=== PATIENT | female | born 1930 | race Caucasian/White ===

== ENCOUNTER 2017-04-28 00:09 | Inpatient (IN) ==
[2017-04-28] MEDS ORDERED: ONDANSETRON 4 MG/2 ML VIAL IV STA (00:34)
[2017-04-28] MEDS ORDERED: ONDANSETRON 4 MG/2 ML VIAL ONE ×3 (00:45→11:26)
[2017-04-28 01:01] LABS: Basophils # 0.1 10*3/uL (0.0-0.2); Basophils % 0.3 % (0.0-0.8); Eosinophils # 0.2 10*3/uL (0.0-0.87); Eosinophils % 1.1 % (0.00-10.9); Hematocrit 39.1 VOL% (35.7-47.0); Immature Granulocytes % 1.5 %; Immature Granulocytes Absolute 0.26 #; Lymphocytes # 1.3 10*3/uL (1.4-4.0); Lymphocytes % 7.4 % (21.3-54.2); Mean Corpuscular HGB Conc 30.7 GM/DL (32-36); Mean Corpuscular Hemoglobin 25 PG (27-34); Mean Corpuscular Volume 82.1 FL (87-102); Mean Platelet Volume 10.8 FL (9.6-12.0); Monocytes # 0.6 10*3/uL (0.11-0.8); Monocytes % 3.7 % (1.7-12.7); Neutrophils # 14.8 10*3/uL (1.4-7.4); Platelet Count 252 T/CUMM (130-400); Red Blood Count 4.76 MC/CUMM (3.8-5.5); White Blood Count 17.2 T/CUMM (4-12)
[2017-04-28 01:03] LABS: INR 0.9; PT Patient Result 9.8 SECS; Partial Thromboplastin Time 22.6 SECS (0-40)
[2017-04-28 01:17] LABS: Albumin 3.7 G/DL (3.4-5.0); Bilirubin,Total 0.4 MG/DL (0.2-1.0); Calcium 8.6 MG/DL (8.5-10.1); Osmolality,Calculated 286.5 MOS/KG (273-304); Potassium 4.2 MMOL/L (3.5-5.1); Total Protein 7.3 G/DL (6.4-8.3)
[2017-04-28] MEDS ORDERED: ONDANSETRON 4 MG/2 ML VIAL IV PRN ×2 (01:55→11:24)
[2017-04-28 02:22] LABS: Apearance,Urine CLEAR (Clear); Bacteria,Urine Few /HPF (Few); Bilirubin,Urine Negative (Negative); Blood, Urine Negative (Negative); Glucose,Urine (UA) Negative (Negative); Ketones,Urine Negative (Negative); Mucus,Urine Occasional /LPF (Occasional); Nitrite,Urine Negative (Negative); Protein,Urine Negative; RBC,Urine 2 /HPF (0-4); Squamous Epithelial Cell,Urine Occasional /HPF (0-10); Urine Color Yellow (Yellow); Urine Specific Gravity 1.016 (1.001-1.035); WBC,Urine 1 /HPF (0-6)
[2017-04-28] MEDS ORDERED: GLUCAGON 1 MG VIAL IM PRN (02:52)
[2017-04-28] MEDS ORDERED: DEXTROSE 50% 25 GM/50 ML VIAL IV PRN (02:52)
[2017-04-28] MEDS: HYDROmorphone 2 MG/1 ML VIAL IV PRN ×2 (03:25→20:54)
[2017-04-28 07:18] LABS: Basophils # 0.1 10*3/uL (0.0-0.2); Basophils % 0.4 % (0.0-0.8); Eosinophils # 0.2 10*3/uL (0.0-0.87); Eosinophils % 1.1 % (0.00-10.9); Hematocrit 37.2 VOL% (35.7-47.0); Hemoglobin 11.1 GM/DL (12.0-16.0); Immature Granulocytes % 0.6 %; Immature Granulocytes Absolute 0.08 #; Lymphocytes # 1.3 10*3/uL (1.4-4.0); Lymphocytes % 9.7 % (21.3-54.2); Mean Corpuscular HGB Conc 29.8 GM/DL (32-36); Mean Corpuscular Hemoglobin 25 PG (27-34); Mean Corpuscular Volume 84.9 FL (87-102); Mean Platelet Volume 10.3 FL (9.6-12.0); Monocytes # 0.7 10*3/uL (0.11-0.8); Monocytes % 5.1 % (1.7-12.7); Neutrophils # 11.5 10*3/uL (1.4-7.4); Neutrophils % 83.1 % (38.7-73.9); Platelet Count 235 T/CUMM (130-400); Red Blood Count 4.38 MC/CUMM (3.8-5.5); Red Cell Distribution Width 18.6 % (9.3-17.3); White Blood Count 13.8 T/CUMM (4-12)
[2017-04-28 07:38] LABS: Alanine Aminotransferase 16 U/L (13-56); Albumin 3.2 G/DL (3.4-5.0); Alkaline Phosphatase 83 U/L (45-117); Aspartate Amino Transferase 16 U/L (0-37); Bilirubin,Total < 0.39 MG/DL (0.2-1.0); Blood Urea Nitrogen 36 MG/DL (7-18); Calcium 8.5 MG/DL (8.5-10.1); Glucose 174 MG/DL (74-106); Osmolality,Calculated 286.7 MOS/KG (273-304); Potassium 4.7 MMOL/L (3.5-5.1); Sodium 138 MMOL/L (136-145); Total Protein 6.8 G/DL (6.4-8.3)
[2017-04-28] MEDS ORDERED: CLINDAMYCIN INJ 900 MG in PREMIX 1 EACH IV ONE (07:40)
[2017-04-28] MEDS: INSULIN REGULAR 100 UNIT/ML SUBCUT SCH ×4 (07:42→20:56)
[2017-04-28 07:45] LABS: Hypochromasia 1+; Microcytosis 1+; Platelet Estimate Normal
[2017-04-28] MEDS ORDERED: CLINDAMYCIN INJ 50 ML IV ONE (09:19)
[2017-04-28] MEDS ORDERED: PROMETHAZINE 25 MG/1 ML VIAL IM PRN (10:50)
[2017-04-28] MEDS ORDERED: BISACODYL 10 MG SUPP RECTAL PRN (10:50)
[2017-04-28] MEDS ORDERED: LACTULOSE 20 GM/30 ML UDCUP PO PRN (10:50)
[2017-04-28] MEDS: PANTOPRAZOLE 40 MG VIAL IV SCH (10:53)
[2017-04-28] MEDS ORDERED: PROPOFOL 200 MG/20 ML VIAL IV ONE (11:13)
[2017-04-28] MEDS ORDERED: SEVOFLURANE 1 UNIT/15 MINUTE INH ONE (11:13)
[2017-04-28] MEDS ORDERED: PHENYLEPHRINE 10 MG/1 ML VIAL IV ONE (11:14)
[2017-04-28] MEDS ORDERED: NEOSTIGMINE 10 MG/10 ML VIAL ONE (11:14)
[2017-04-28] MEDS ORDERED: ROCURONIUM 100 MG/10 ML VIAL IV ONE (11:14)
[2017-04-28] MEDS ORDERED: GLYCOPYRROLATE 0.4 MG/2 ML VIAL ONE (11:14)
[2017-04-28] MEDS ORDERED: fentaNYL 100 MCG/2 ML VIAL ONE (11:14)
[2017-04-28] MEDS ORDERED: HYDROmorphone 2 MG/1 ML VIAL IV PRN (11:24)
[2017-04-28] MEDS: LACTATED RINGERS 1,000 ML IV SCH (12:08)
[2017-04-28] MEDS: AMITRIPTYLINE 25 MG TABLET PO SCH ×2 (17:50→20:49)
[2017-04-28] MEDS: GABAPENTIN 400 MG CAPSULE PO SCH ×2 (17:50→20:49)
[2017-04-28] MEDS: PERPHENAZINE 2 MG TABLET PO SCH ×2 (17:50→20:48)
[2017-04-28] MEDS: PERPHENAZINE 4 MG TABLET PO SCH ×2 (17:50→20:49)
[2017-04-28] MEDS: GLIMEPIRIDE 4 MG TABLET PO SCH (18:39)
[2017-04-28] MEDS: CLINDAMYCIN INJ 900 MG in PREMIX 1 EACH IV SCH (18:40)
[2017-04-28] MEDS: DONEPEZIL 5 MG TABLET PO SCH (20:48)
[2017-04-28] MEDS: QUEtiapine XR 50 MG TABLET PO SCH (20:49)
[2017-04-28] MEDS: rOPINIRole 4 MG TABLET PO SCH (20:49)
[2017-04-28] MEDS: PANTOPRAZOLE 40 MG TABLET PO SCH (20:53)
[2017-04-28] MEDS: TEMAZEPAM 15 MG CAPSULE PO SCH (20:53)
[2017-04-29] MEDS: CLINDAMYCIN INJ 900 MG in PREMIX 1 EACH IV SCH (00:31)
[2017-04-29] MEDS: FONDAPARINUX 2.5 MG/0.5 ML SYRINGE SUBCUT SCH (05:19)
[2017-04-29 05:55] LABS: Basophils % 0.4 % (0.0-0.8); Eosinophils # 0.5 10*3/uL (0.0-0.87); Eosinophils % 4.8 % (0.00-10.9); Hematocrit 31.8 VOL% (35.7-47.0); Hemoglobin 9.7 GM/DL (12.0-16.0); Immature Granulocytes % 0.7 %; Immature Granulocytes Absolute 0.07 #; Lymphocytes # 1.2 10*3/uL (1.4-4.0); Lymphocytes % 11.5 % (21.3-54.2); Mean Corpuscular HGB Conc 30.5 GM/DL (32-36); Mean Corpuscular Hemoglobin 25 PG (27-34); Mean Corpuscular Volume 82.8 FL (87-102); Mean Platelet Volume 10.8 FL (9.6-12.0); Monocytes # 0.6 10*3/uL (0.11-0.8); Monocytes % 5.4 % (1.7-12.7); Neutrophils # 8.2 10*3/uL (1.4-7.4); Neutrophils % 77.2 % (38.7-73.9); Platelet Count 193 T/CUMM (130-400); Red Blood Count 3.84 MC/CUMM (3.8-5.5); Red Cell Distribution Width 18.5 % (9.3-17.3); White Blood Count 10.6 T/CUMM (4-12)
[2017-04-29] MEDS: INSULIN REGULAR 100 UNIT/ML SUBCUT SCH ×4 (09:38→20:45)
[2017-04-29] MEDS: PANTOPRAZOLE 40 MG VIAL IV SCH (09:38)
[2017-04-29] MEDS: PANTOPRAZOLE 40 MG TABLET PO SCH ×2 (09:47→20:39)
[2017-04-29] MEDS: QUEtiapine XR 50 MG TABLET PO SCH ×2 (09:47→20:39)
[2017-04-29] MEDS: AMITRIPTYLINE 25 MG TABLET PO SCH ×3 (09:48→20:39)
[2017-04-29] MEDS: PERPHENAZINE 4 MG TABLET PO SCH ×3 (09:50→20:39)
[2017-04-29] MEDS: PERPHENAZINE 2 MG TABLET PO SCH ×3 (09:50→20:39)
[2017-04-29] MEDS: GABAPENTIN 400 MG CAPSULE PO SCH ×3 (09:52→20:39)
[2017-04-29] MEDS: GLIMEPIRIDE 4 MG TABLET PO SCH ×2 (09:52→18:32)
[2017-04-29] MEDS: LACTATED RINGERS 1,000 ML IV SCH (13:37)
[2017-04-29] MEDS: rOPINIRole 4 MG TABLET PO SCH (20:39)
[2017-04-29] MEDS: DONEPEZIL 5 MG TABLET PO SCH (20:39)
[2017-04-29] MEDS: TEMAZEPAM 15 MG CAPSULE PO SCH (20:39)
[2017-04-30] MEDS: FONDAPARINUX 2.5 MG/0.5 ML SYRINGE SUBCUT SCH (05:51)
[2017-04-30] MEDS: LACTATED RINGERS 1,000 ML IV SCH ×2 (07:18→11:45)
[2017-04-30] MEDS: INSULIN REGULAR 100 UNIT/ML SUBCUT SCH ×4 (09:05→22:21)
[2017-04-30] MEDS: GLIMEPIRIDE 4 MG TABLET PO SCH ×2 (09:05→20:26)
[2017-04-30] MEDS: PANTOPRAZOLE 40 MG VIAL IV SCH (09:06)
[2017-04-30] MEDS: PERPHENAZINE 4 MG TABLET PO SCH ×3 (14:41→22:22)
[2017-04-30] MEDS: PERPHENAZINE 2 MG TABLET PO SCH ×3 (14:43→22:22)
[2017-04-30] MEDS: PANTOPRAZOLE 40 MG TABLET PO SCH ×2 (14:45→22:21)
[2017-04-30] MEDS: AMITRIPTYLINE 25 MG TABLET PO SCH ×3 (14:45→22:22)
[2017-04-30] MEDS: GABAPENTIN 400 MG CAPSULE PO SCH ×3 (14:46→22:22)
[2017-04-30] MEDS: MAGNESIUM HYDROXIDE SUSP 30 ML UDCUP PO PRN (14:48)
[2017-04-30] MEDS: QUEtiapine XR 50 MG TABLET PO SCH ×2 (14:53→22:22)
[2017-04-30] MEDS: TEMAZEPAM 15 MG CAPSULE PO SCH (22:21)
[2017-04-30] MEDS: rOPINIRole 4 MG TABLET PO SCH (22:22)
[2017-04-30] MEDS: DONEPEZIL 5 MG TABLET PO SCH (22:22)
[2017-05-01] MEDS: FONDAPARINUX 2.5 MG/0.5 ML SYRINGE SUBCUT SCH (06:06)
[2017-05-01] MEDS: LACTATED RINGERS 1,000 ML IV SCH (06:34)
[2017-05-01] MEDS: INSULIN REGULAR 100 UNIT/ML SUBCUT SCH ×4 (08:37→22:08)
[2017-05-01] MEDS: GLIMEPIRIDE 4 MG TABLET PO SCH ×2 (08:38→17:48)
[2017-05-01] MEDS: MAGNESIUM HYDROXIDE SUSP 30 ML UDCUP PO PRN (13:29)
[2017-05-01] MEDS: PANTOPRAZOLE 40 MG TABLET PO SCH ×2 (13:32→22:05)
[2017-05-01] MEDS: PANTOPRAZOLE 40 MG VIAL IV SCH (13:44)
[2017-05-01] MEDS: AMITRIPTYLINE 25 MG TABLET PO SCH ×3 (13:44→22:05)
[2017-05-01] MEDS: GABAPENTIN 400 MG CAPSULE PO SCH ×3 (13:44→22:05)
[2017-05-01] MEDS: PERPHENAZINE 4 MG TABLET PO SCH ×3 (13:45→22:05)
[2017-05-01] MEDS: QUEtiapine XR 50 MG TABLET PO SCH ×2 (13:45→22:16)
[2017-05-01] MEDS: PERPHENAZINE 2 MG TABLET PO SCH ×3 (13:46→22:05)
[2017-05-01] MEDS: rOPINIRole 4 MG TABLET PO SCH (22:05)
[2017-05-01] MEDS: DONEPEZIL 5 MG TABLET PO SCH (22:05)
[2017-05-02] MEDS: LACTATED RINGERS 1,000 ML IV SCH (06:30)
[2017-05-02] MEDS: FONDAPARINUX 2.5 MG/0.5 ML SYRINGE SUBCUT SCH (06:30)
[2017-05-02] MEDS: GLIMEPIRIDE 4 MG TABLET PO SCH (09:00)
[2017-05-02] MEDS: GABAPENTIN 400 MG CAPSULE PO SCH (09:00)
[2017-05-02] MEDS: PERPHENAZINE 4 MG TABLET PO SCH (09:00)
[2017-05-02] MEDS: AMITRIPTYLINE 25 MG TABLET PO SCH (09:00)
[2017-05-02] MEDS: QUEtiapine XR 50 MG TABLET PO SCH (09:00)
[2017-05-02] MEDS: PERPHENAZINE 2 MG TABLET PO SCH (09:00)
[2017-05-02] MEDS: PANTOPRAZOLE 40 MG TABLET PO SCH (09:00)
[2017-05-02] MEDS: INSULIN REGULAR 100 UNIT/ML SUBCUT SCH ×2 (09:02→11:45)
[2017-05-02] MEDS: PANTOPRAZOLE 40 MG VIAL IV SCH (09:02)
[2017-05-02 11:16] VITALS: BP 140/67
== END 2017-05-02 13:45 | disposition swing bed (61) | DRG 481 ==
LOC: EDBD → EDUNIT# → N.ED 00:09 → N.EDINP 01:55 → SUATTDRO 01:55 → N.3E 02:29
PROVIDERS: ADMIT Internal Medicine Geriatric Medicine; ATTEND Internal Medicine

== ENCOUNTER 2017-05-11 12:56 | Inpatient (IN) ==
[2017-05-11] MEDS ORDERED: SODIUM CHLORIDE 0.9% 1,000 ML IV STA ×2 (13:33→14:51)
[2017-05-11] MEDS ORDERED: LEVOFLOXACIN INJ 500 MG in PREMIX 1 EACH IV STA (13:34)
[2017-05-11 14:25] LABS: Basophils # 0.1 10*3/uL (0.0-0.2); Basophils % 0.2 % (0.0-0.8); Eosinophils # 0.1 10*3/uL (0.0-0.87); Eosinophils % 0.4 % (0.00-10.9); Hematocrit 38.6 VOL% (35.7-47.0); Hemoglobin 11.6 GM/DL (12.0-16.0); Immature Granulocytes % 2.4 %; Immature Granulocytes Absolute 0.52 #; Lymphocytes # 0.4 10*3/uL (1.4-4.0); Lymphocytes % 1.8 % (21.3-54.2); Mean Corpuscular HGB Conc 30.1 GM/DL (32-36); Mean Corpuscular Hemoglobin 25 PG (27-34); Mean Corpuscular Volume 84.1 FL (87-102); Mean Platelet Volume 10.4 FL (9.6-12.0); Monocytes # 0.4 10*3/uL (0.11-0.8); Neutrophils # 20.1 10*3/uL (1.4-7.4); Neutrophils % 93.2 % (38.7-73.9); Platelet Count 586 T/CUMM (130-400); Red Blood Count 4.59 MC/CUMM (3.8-5.5); Red Cell Distribution Width 16.6 % (9.3-17.3); White Blood Count 21.5 T/CUMM (4-12)
[2017-05-11 14:39] LABS: Partial Thromboplastin Time 28.5 SECS (0-40)
[2017-05-11] MEDS ORDERED: LEVOFLOXACIN INJ 100 ML IV ONE (14:42)
[2017-05-11 14:43] LABS: Apearance,Urine CLEAR (Clear); Bilirubin,Urine Negative (Negative); Blood, Urine Negative (Negative); Glucose,Urine (UA) Negative (Negative); Hyaline Casts,Urine 15 /LPF (0-3); Ketones,Urine Negative (Negative); Mucus,Urine Occasional /LPF (Occasional); Nitrite,Urine Negative (Negative); Protein,Urine Negative; RBC,Urine 1 /HPF (0-4); Squamous Epithelial Cell,Urine Occasional /HPF (0-10); Urine Color Yellow (Yellow); Urine Specific Gravity 1.013 (1.001-1.035); Urine Urobilinogen < 2.0 EU/DL (0.2-1.0); WBC,Urine 3 /HPF (0-6)
[2017-05-11 14:48] LABS: Alanine Aminotransferase 16 U/L (13-56); Albumin 2.7 G/DL (3.4-5.0); Alkaline Phosphatase 125 U/L (45-117); Aspartate Amino Transferase 27 U/L (0-37); Bilirubin,Total < 0.39 MG/DL (0.2-1.0); Blood Urea Nitrogen 22 MG/DL (7-18); Calcium 8.9 MG/DL (8.5-10.1); Glucose 188 MG/DL (74-106); Osmolality,Calculated 273.4 MOS/KG (273-304); Potassium 4.7 MMOL/L (3.5-5.1); Sodium 133 MMOL/L (136-145); Total Protein 6.5 G/DL (6.4-8.3)
[2017-05-11 14:55] LABS: Lactic Acid 4.2 MMOL/L (0.4-2.0)
[2017-05-11 15:04] LABS: Barbiturates Screen,Urine Negative (Negative); Benzodiazepines Screen,Urine Negative (Negative); Cannabinoid Screen,Urine Negative (Negative); Opiate Screen,Urine Positive (Negative); Phencyclidine Screen,Urine Negative (Negative)
[2017-05-11] MEDS ORDERED: SODIUM CHLORIDE 0.9% 300 ML IV ONE (15:10)
[2017-05-11] MEDS ORDERED: GENTAMICIN INJ 300 MG in SODIUM CHLORIDE 0.9% 100 ML IV SCH (15:30)
[2017-05-11] MEDS ORDERED: ONDANSETRON 4 MG/2 ML VIAL IV PRN (15:41)
[2017-05-11] MEDS ORDERED: AZTREONAM 1,000 MG VIAL ONE (15:46)
[2017-05-11 16:07] LABS: ABG Base Excess 1.9 MMOL/L (-2.5-2.5); ABG HCO3 24.8 MMOL/L (20-26); ABG Oxygen Saturation 93.5 % (95-100); ABG PCO2 32.8 MM HG (35-48); ABG PH 7.496 (7.35-7.45); ABG PO2 68.6 MM HG (80-95); ABG TCO2 25.8 MMOL/L (23-27); Allen Test Positive; Pt O2 Delivery Device Room Air
[2017-05-11] MEDS: AZTREONAM 2,000 MG in SYRINGE 1 EACH IV SCH ×2 (16:19→20:47)
[2017-05-11 16:25] LABS: Troponin I Only 0.015 NG/ML (0.00-0.045)
[2017-05-11] MEDS ORDERED: DEXTROSE 50% 25 GM/50 ML VIAL IV PRN (16:26)
[2017-05-11] MEDS ORDERED: GLUCAGON 1 MG VIAL IM PRN (16:26)
[2017-05-11 16:41] LABS: Lymphocytes 2 % (20-55); Platelet Estimate Increased; Segmented Neutrophils 95 % (50-85); Total Cells Counted 100
[2017-05-11] MEDS: SODIUM CHLORIDE 0.9% 1,000 ML IV SCH (18:00)
[2017-05-11] MEDS: INSULIN LISPRO 100 UNIT/ML SUBCUT SCH (18:10)
[2017-05-11] MEDS: PANTOPRAZOLE 40 MG VIAL IV SCH (18:13)
[2017-05-11] MEDS: VANCOMYCIN INJ 1,250 MG in SODIUM CHLORIDE 0.9% 250 ML IV SCH (18:14)
[2017-05-11] MEDS: GENTAMICIN INJ 120 MG in PREMIX 1 EACH IV SCH (20:13)
[2017-05-11 20:14] LABS: Lactic Acid 4.1 MMOL/L (0.4-2.0); Troponin I Only < 0.015 NG/ML (0.00-0.045)
[2017-05-11] MEDS: ENOXAPARIN 40 MG/0.4 ML SYRINGE SUBCUT SCH (20:47)
[2017-05-12 01:42] LABS: Troponin I Only < 0.015 NG/ML (0.00-0.045)
[2017-05-12] MEDS: SODIUM CHLORIDE 0.9% 1,000 ML IV SCH ×4 (02:32→23:38)
[2017-05-12] MEDS: AZTREONAM 2,000 MG in SYRINGE 1 EACH IV SCH ×4 (03:51→20:31)
[2017-05-12 06:00] LABS: Basophils % 0.2 % (0.0-0.8); Eosinophils # 0.7 10*3/uL (0.0-0.87); Eosinophils % 4.4 % (0.00-10.9); Hematocrit 29.3 VOL% (35.7-47.0); Immature Granulocytes % 1.8 %; Immature Granulocytes Absolute 0.29 #; Lymphocytes # 0.5 10*3/uL (1.4-4.0); Mean Corpuscular HGB Conc 31.1 GM/DL (32-36); Mean Corpuscular Hemoglobin 26 PG (27-34); Mean Corpuscular Volume 82.1 FL (87-102); Mean Platelet Volume 10.6 FL (9.6-12.0); Monocytes # 0.5 10*3/uL (0.11-0.8); Monocytes % 3.4 % (1.7-12.7); Neutrophils % 87.2 % (38.7-73.9); Red Cell Distribution Width 16.8 % (9.3-17.3); White Blood Count 16.1 T/CUMM (4-12)
[2017-05-12 06:02] LABS: Hemoglobin 9.1 GM/DL (12.0-16.0); Platelet Count 427 T/CUMM (130-400); Red Blood Count 3.57 MC/CUMM (3.8-5.5)
[2017-05-12 06:12] LABS: Calcium 7.8 MG/DL (8.5-10.1); Osmolality,Calculated 272.1 MOS/KG (273-304); Potassium 4.4 MMOL/L (3.5-5.1)
[2017-05-12 06:23] LABS: Band Neutrophils 2 % (0-10); Eosinophils 4 % (0-10); Giant Platelets Few; Hypochromasia 1+; Lymphocytes 4 % (20-55); Ovalocytes Slight; Platelet Estimate Adequate; Segmented Neutrophils 87 % (50-85); Total Cells Counted 100
[2017-05-12] MEDS: INSULIN LISPRO 100 UNIT/ML SUBCUT SCH ×2 (08:51→17:04)
[2017-05-12] MEDS: PANTOPRAZOLE 40 MG VIAL IV SCH (08:53)
[2017-05-12] MEDS: GENTAMICIN INJ 120 MG in PREMIX 1 EACH IV SCH (14:02)
[2017-05-12] MEDS: VANCOMYCIN INJ 1,250 MG in SODIUM CHLORIDE 0.9% 250 ML IV SCH (17:26)
[2017-05-12] MEDS: ENOXAPARIN 40 MG/0.4 ML SYRINGE SUBCUT SCH (20:20)
[2017-05-13] MEDS ORDERED: diphenhydrAMINE CAP 25 MG CAPSULE PO ONE (01:58)
[2017-05-13] MEDS: AZTREONAM 2,000 MG in SYRINGE 1 EACH IV SCH ×4 (04:03→22:11)
[2017-05-13 05:23] LABS: Basophils % 0.4 % (0.0-0.8); Eosinophils # 1.3 10*3/uL (0.0-0.87); Eosinophils % 11.2 % (0.00-10.9); Hematocrit 31.1 VOL% (35.7-47.0); Hemoglobin 9.5 GM/DL (12.0-16.0); Immature Granulocytes % 1.1 %; Immature Granulocytes Absolute 0.12 #; Lymphocytes # 0.9 10*3/uL (1.4-4.0); Mean Corpuscular HGB Conc 30.5 GM/DL (32-36); Mean Corpuscular Hemoglobin 25 PG (27-34); Mean Corpuscular Volume 83.2 FL (87-102); Mean Platelet Volume 10.3 FL (9.6-12.0); Monocytes # 0.4 10*3/uL (0.11-0.8); Monocytes % 3.8 % (1.7-12.7); Neutrophils # 8.5 10*3/uL (1.4-7.4); Neutrophils % 75.5 % (38.7-73.9); Platelet Count 423 T/CUMM (130-400); Red Blood Count 3.74 MC/CUMM (3.8-5.5); Red Cell Distribution Width 16.7 % (9.3-17.3); White Blood Count 11.3 T/CUMM (4-12)
[2017-05-13 05:54] LABS: Burr Cells Slight; Eosinophils 14 % (0-10); Giant Platelets Few; Hypochromasia 1+; Lymphocytes 5 % (20-55); Platelet Estimate Adequate; Segmented Neutrophils 78 % (50-85); Total Cells Counted 100
[2017-05-13 06:28] LABS: Calcium 8.1 MG/DL (8.5-10.1); Osmolality,Calculated 276.7 MOS/KG (273-304); Potassium 4.4 MMOL/L (3.5-5.1)
[2017-05-13] MEDS: GABAPENTIN 400 MG CAPSULE PO SCH ×3 (08:21→22:05)
[2017-05-13] MEDS: QUEtiapine XR 50 MG TABLET PO SCH ×2 (08:22→22:05)
[2017-05-13] MEDS: PANTOPRAZOLE 40 MG VIAL IV SCH (08:23)
[2017-05-13] MEDS: INSULIN LISPRO 100 UNIT/ML SUBCUT SCH ×2 (08:32→18:01)
[2017-05-13] MEDS ORDERED: PERPHENAZINE PO SCH (09:00)
[2017-05-13] MEDS ORDERED: AMITRIPTYLINE 25 MG TABLET PO SCH (09:00)
[2017-05-13] MEDS ORDERED: AMITRIPTYLINE PO SCH (09:00)
[2017-05-13] MEDS: GENTAMICIN INJ 120 MG in PREMIX 1 EACH IV SCH (10:00)
[2017-05-13] MEDS: AMITRIPTYLINE 25 MG TABLET PO SCH ×3 (10:18→22:04)
[2017-05-13] MEDS: PERPHENAZINE 2 MG TABLET PO SCH ×3 (10:25→22:04)
[2017-05-13] MEDS: SODIUM CHLORIDE 0.9% 1,000 ML IV SCH (11:39)
[2017-05-13] MEDS: ZINC OXIDE PASTE 113 GM TUBE TOP SCH ×2 (12:30→22:06)
[2017-05-13] MEDS: rOPINIRole 4 MG TABLET PO SCH (22:03)
[2017-05-13] MEDS: traZODone 50 MG TABLET PO SCH (22:03)
[2017-05-13] MEDS: DONEPEZIL 5 MG TABLET PO SCH (22:04)
[2017-05-13] MEDS: ENOXAPARIN 40 MG/0.4 ML SYRINGE SUBCUT SCH (22:06)
[2017-05-13] MEDS: VANCOMYCIN INJ 1,250 MG in SODIUM CHLORIDE 0.9% 250 ML IV SCH (22:48)
[2017-05-14] MEDS: AZTREONAM 2,000 MG in SYRINGE 1 EACH IV SCH ×4 (02:40→21:21)
[2017-05-14] MEDS: INSULIN LISPRO 100 UNIT/ML SUBCUT SCH ×2 (07:32→16:57)
[2017-05-14] MEDS: PANTOPRAZOLE 40 MG TABLET PO SCH (10:48)
[2017-05-14] MEDS: GABAPENTIN 400 MG CAPSULE PO SCH ×3 (10:48→21:17)
[2017-05-14] MEDS: QUEtiapine XR 50 MG TABLET PO SCH ×2 (10:48→21:17)
[2017-05-14] MEDS: AMITRIPTYLINE 25 MG TABLET PO SCH ×3 (10:48→21:17)
[2017-05-14] MEDS: PERPHENAZINE 2 MG TABLET PO SCH ×3 (10:49→21:17)
[2017-05-14] MEDS: ZINC OXIDE PASTE 113 GM TUBE TOP SCH ×2 (14:50→21:28)
[2017-05-14] MEDS: DONEPEZIL 5 MG TABLET PO SCH (21:17)
[2017-05-14] MEDS: traZODone 50 MG TABLET PO SCH (21:17)
[2017-05-14] MEDS: ENOXAPARIN 40 MG/0.4 ML SYRINGE SUBCUT SCH (21:17)
[2017-05-14] MEDS: rOPINIRole 4 MG TABLET PO SCH (21:17)
[2017-05-14] MEDS: VANCOMYCIN INJ 1,250 MG in SODIUM CHLORIDE 0.9% 250 ML IV SCH (21:28)
[2017-05-15] MEDS: AZTREONAM 2,000 MG in SYRINGE 1 EACH IV SCH (04:08)
[2017-05-15] MEDS: INSULIN LISPRO 100 UNIT/ML SUBCUT SCH ×2 (07:43→16:34)
[2017-05-15] MEDS: AMITRIPTYLINE 25 MG TABLET PO SCH ×3 (08:43→20:32)
[2017-05-15] MEDS: PANTOPRAZOLE 40 MG TABLET PO SCH (08:44)
[2017-05-15] MEDS: GABAPENTIN 400 MG CAPSULE PO SCH ×3 (08:44→20:33)
[2017-05-15] MEDS: QUEtiapine XR 50 MG TABLET PO SCH ×2 (08:44→20:33)
[2017-05-15] MEDS: PERPHENAZINE 2 MG TABLET PO SCH ×3 (08:44→20:33)
[2017-05-15] MEDS: ZINC OXIDE PASTE 113 GM TUBE TOP SCH ×2 (19:25→20:33)
[2017-05-15] MEDS: traZODone 50 MG TABLET PO SCH (20:32)
[2017-05-15] MEDS: rOPINIRole 4 MG TABLET PO SCH (20:33)
[2017-05-15] MEDS: ENOXAPARIN 40 MG/0.4 ML SYRINGE SUBCUT SCH (20:33)
[2017-05-15] MEDS: DONEPEZIL 5 MG TABLET PO SCH (20:33)
[2017-05-16 06:28] LABS: Basophils # 0.1 10*3/uL (0.0-0.2); Basophils % 0.8 % (0.0-0.8); Eosinophils # 0.5 10*3/uL (0.0-0.87); Eosinophils % 6.2 % (0.00-10.9); Hematocrit 31.6 VOL% (35.7-47.0); Hemoglobin 9.9 GM/DL (12.0-16.0); Immature Granulocytes % 2.9 %; Immature Granulocytes Absolute 0.25 #; Lymphocytes # 2.1 10*3/uL (1.4-4.0); Lymphocytes % 23.5 % (21.3-54.2); Mean Corpuscular HGB Conc 31.3 GM/DL (32-36); Mean Corpuscular Hemoglobin 26 PG (27-34); Mean Corpuscular Volume 81.4 FL (87-102); Mean Platelet Volume 10.1 FL (9.6-12.0); Monocytes # 0.7 10*3/uL (0.11-0.8); Monocytes % 7.4 % (1.7-12.7); Neutrophils # 5.2 10*3/uL (1.4-7.4); Neutrophils % 59.2 % (38.7-73.9); Platelet Count 442 T/CUMM (130-400); Red Blood Count 3.88 MC/CUMM (3.8-5.5); Red Cell Distribution Width 16.6 % (9.3-17.3); White Blood Count 8.7 T/CUMM (4-12)
[2017-05-16 06:57] LABS: Calcium 8.6 MG/DL (8.5-10.1); Osmolality,Calculated 280.4 MOS/KG (273-304); Potassium 3.9 MMOL/L (3.5-5.1)
[2017-05-16] MEDS: INSULIN LISPRO 100 UNIT/ML SUBCUT SCH ×2 (08:41→17:33)
[2017-05-16] MEDS: PANTOPRAZOLE 40 MG TABLET PO SCH (09:22)
[2017-05-16] MEDS: GABAPENTIN 400 MG CAPSULE PO SCH ×3 (09:22→20:25)
[2017-05-16] MEDS: QUEtiapine XR 50 MG TABLET PO SCH ×2 (09:22→20:25)
[2017-05-16] MEDS: AMITRIPTYLINE 25 MG TABLET PO SCH ×3 (09:22→20:25)
[2017-05-16] MEDS: PERPHENAZINE 2 MG TABLET PO SCH ×3 (09:22→20:25)
[2017-05-16] MEDS: ZINC OXIDE PASTE 113 GM TUBE TOP SCH ×2 (16:19→20:25)
[2017-05-16] MEDS: DONEPEZIL 5 MG TABLET PO SCH (20:25)
[2017-05-16] MEDS: traZODone 50 MG TABLET PO SCH (20:25)
[2017-05-16] MEDS: rOPINIRole 4 MG TABLET PO SCH (20:25)
[2017-05-16] MEDS: ENOXAPARIN 40 MG/0.4 ML SYRINGE SUBCUT SCH (20:25)
[2017-05-17] MEDS: INSULIN LISPRO 100 UNIT/ML SUBCUT SCH ×2 (10:17→17:05)
[2017-05-17] MEDS: GABAPENTIN 400 MG CAPSULE PO SCH ×3 (10:21→20:16)
[2017-05-17] MEDS: PANTOPRAZOLE 40 MG TABLET PO SCH (10:21)
[2017-05-17] MEDS: QUEtiapine XR 50 MG TABLET PO SCH ×2 (10:21→20:16)
[2017-05-17] MEDS: PERPHENAZINE 2 MG TABLET PO SCH ×3 (10:21→20:16)
[2017-05-17] MEDS: AMITRIPTYLINE 25 MG TABLET PO SCH ×3 (10:22→20:16)
[2017-05-17] MEDS: ZINC OXIDE PASTE 113 GM TUBE TOP SCH ×2 (10:22→20:16)
[2017-05-17] MEDS: rOPINIRole 4 MG TABLET PO SCH (20:16)
[2017-05-17] MEDS: ENOXAPARIN 40 MG/0.4 ML SYRINGE SUBCUT SCH (20:16)
[2017-05-17] MEDS: DONEPEZIL 5 MG TABLET PO SCH (20:16)
[2017-05-17] MEDS: traZODone 50 MG TABLET PO SCH (20:16)
[2017-05-18] MEDS: AMITRIPTYLINE 25 MG TABLET PO SCH (09:16)
[2017-05-18] MEDS: GABAPENTIN 400 MG CAPSULE PO SCH (09:16)
[2017-05-18] MEDS: PANTOPRAZOLE 40 MG TABLET PO SCH (09:16)
[2017-05-18] MEDS: QUEtiapine XR 50 MG TABLET PO SCH (09:16)
[2017-05-18] MEDS: INSULIN LISPRO 100 UNIT/ML SUBCUT SCH (09:17)
[2017-05-18] MEDS: PERPHENAZINE 2 MG TABLET PO SCH (09:17)
[2017-05-18 11:11] VITALS: BP 114/64
[2017-05-18] MEDS: ZINC OXIDE PASTE 113 GM TUBE TOP SCH (12:58)
== END 2017-05-18 14:40 | disposition swing bed (61) | DRG 871 ==
LOC: EDUNIT# → EDBD → N.ED 12:56 → N.EDINP 15:41 → SUATTDRO 15:41 → SUPCPDRO 15:41 → N.ICU 16:39 → N.3E 05-13 13:40
PROVIDERS: ADMIT Internal Medicine; ATTEND Internal Medicine

== ENCOUNTER 2017-05-22 09:59 | Inpatient (IN) ==
[2017-05-22] MEDS ORDERED: SODIUM CHLORIDE 0.9% 500 ML IV STA (10:30)
[2017-05-22] MEDS ORDERED: IBUPROFEN 400 MG TABLET PO STA (10:30)
[2017-05-22 10:35] LABS: Basophils # 0.1 10*3/uL (0.0-0.2); Basophils % 0.2 % (0.0-0.8); Hematocrit 35.1 VOL% (35.7-47.0); Hemoglobin 10.9 GM/DL (12.0-16.0); Immature Granulocytes % 0.9 %; Lymphocytes # 0.2 10*3/uL (1.4-4.0); Lymphocytes % 0.9 % (21.3-54.2); Mean Corpuscular HGB Conc 31.1 GM/DL (32-36); Mean Corpuscular Hemoglobin 26 PG (27-34); Mean Corpuscular Volume 82.6 FL (87-102); Mean Platelet Volume 10.4 FL (9.6-12.0); Monocytes # 0.4 10*3/uL (0.11-0.8); Monocytes % 1.7 % (1.7-12.7); Neutrophils # 22.2 10*3/uL (1.4-7.4); Neutrophils % 96.3 % (38.7-73.9); Platelet Count 346 T/CUMM (130-400); Red Blood Count 4.25 MC/CUMM (3.8-5.5); Red Cell Distribution Width 16.4 % (9.3-17.3); White Blood Count 23.1 T/CUMM (4-12)
[2017-05-22] MEDS ORDERED: IBUPROFEN 400 MG TABLET ONE (10:56)
[2017-05-22 11:04] LABS: Alanine Aminotransferase 32 U/L (13-56); Albumin 2.6 G/DL (3.4-5.0); Alkaline Phosphatase 136 U/L (45-117); Aspartate Amino Transferase 30 U/L (0-37); Blood Urea Nitrogen 25 MG/DL (7-18); Calcium 8.4 MG/DL (8.5-10.1); Glucose 252 MG/DL (74-106); Osmolality,Calculated 282.1 MOS/KG (273-304); Potassium 4.8 MMOL/L (3.5-5.1); Sodium 135 MMOL/L (136-145); Total Protein 5.9 G/DL (6.4-8.3)
[2017-05-22 11:15] LABS: Apearance,Urine CLEAR (Clear); Bilirubin,Urine Negative (Negative); Blood, Urine Negative (Negative); Glucose,Urine (UA) Negative (Negative); Ketones,Urine Negative (Negative); Nitrite,Urine Negative (Negative); Protein,Urine Negative; RBC,Urine <1 /HPF (0-4); Squamous Epithelial Cell,Urine Occasional /HPF (0-10); Urine Color Amber (Yellow); Urine Specific Gravity 1.015 (1.001-1.035); Urine Urobilinogen < 2.0 EU/DL (0.2-1.0); WBC,Urine 6 /HPF (0-6)
[2017-05-22] MEDS ORDERED: cefTRIAXone 1,000 MG VIAL ONE (12:15)
[2017-05-22] MEDS ORDERED: SODIUM CHLORIDE 0.9% 1,000 ML IV ONE (12:46)
[2017-05-22] MEDS ORDERED: GLUCAGON 1 MG VIAL IM PRN (12:54)
[2017-05-22] MEDS ORDERED: BISACODYL 10 MG SUPP RECTAL PRN (12:55)
[2017-05-22 13:23] LABS: Band Neutrophils 1 % (0-10); Lymphocytes 1 % (20-55); Segmented Neutrophils 97 % (50-85); Total Cells Counted 100
[2017-05-22 13:24] LABS: Platelet Estimate Adequate; Polychromasia Slight
[2017-05-22] MEDS: cefTRIAXone 1,000 MG in SODIUM CHLORIDE 0.9% 100 ML IV STA ×2 (13:36→13:53)
[2017-05-22] MEDS: FONDAPARINUX 2.5 MG/0.5 ML SYRINGE SUBCUT SCH (15:07)
[2017-05-22] MEDS: GENTAMICIN INJ 160 MG in SODIUM CHLORIDE 0.9% 100 ML IV SCH (15:07)
[2017-05-22] MEDS ORDERED: DEXTROSE 50% 25 GM/50 ML VIAL IV PRN (15:57)
[2017-05-22] MEDS: ACETAMINOPHEN 325 MG TABLET PO PRN (20:40)
[2017-05-22] MEDS: DONEPEZIL 5 MG TABLET PO SCH (22:17)
[2017-05-23] MEDS: GENTAMICIN INJ 160 MG in SODIUM CHLORIDE 0.9% 100 ML IV SCH ×2 (02:12→13:31)
[2017-05-23 06:31] LABS: Basophils # 0.1 10*3/uL (0.0-0.2); Basophils % 0.4 % (0.0-0.8); Eosinophils # 0.7 10*3/uL (0.0-0.87); Eosinophils % 4.5 % (0.00-10.9); Hematocrit 32.5 VOL% (35.7-47.0); Hemoglobin 9.8 GM/DL (12.0-16.0); Immature Granulocytes % 0.8 %; Immature Granulocytes Absolute 0.13 #; Lymphocytes # 0.8 10*3/uL (1.4-4.0); Lymphocytes % 4.9 % (21.3-54.2); Mean Corpuscular HGB Conc 30.2 GM/DL (32-36); Mean Corpuscular Hemoglobin 25 PG (27-34); Mean Corpuscular Volume 83.5 FL (87-102); Mean Platelet Volume 11.4 FL (9.6-12.0); Monocytes # 0.5 10*3/uL (0.11-0.8); Monocytes % 3.2 % (1.7-12.7); Neutrophils % 86.2 % (38.7-73.9); Platelet Count 300 T/CUMM (130-400); Red Blood Count 3.89 MC/CUMM (3.8-5.5); Red Cell Distribution Width 16.3 % (9.3-17.3); White Blood Count 16.3 T/CUMM (4-12)
[2017-05-23 07:03] LABS: Calcium 8.2 MG/DL (8.5-10.1); Eosinophils 1 % (0-10); Hypochromasia 1+; Lymphocytes 3 % (20-55); Microcytosis 1+; Osmolality,Calculated 277.8 MOS/KG (273-304); Platelet Estimate Normal; Potassium 3.8 MMOL/L (3.5-5.1); Segmented Neutrophils 95 % (50-85); Total Cells Counted 100
[2017-05-23] MEDS: LEVOFLOXACIN INJ 500 MG in PREMIX 1 EACH IV SCH (09:31)
[2017-05-23] MEDS: ACETAMINOPHEN 325 MG TABLET PO PRN (09:31)
[2017-05-23] MEDS: PANTOPRAZOLE 40 MG TABLET PO SCH (09:31)
[2017-05-23] MEDS: FONDAPARINUX 2.5 MG/0.5 ML SYRINGE SUBCUT SCH (13:31)
[2017-05-23] MEDS: AMITRIPTYLINE 25 MG TABLET PO SCH (20:38)
[2017-05-23] MEDS: DONEPEZIL 5 MG TABLET PO SCH (20:39)
[2017-05-24] MEDS: ONDANSETRON 4 MG/2 ML VIAL IV PRN ×2 (00:45→04:53)
[2017-05-24] MEDS: GENTAMICIN INJ 160 MG in SODIUM CHLORIDE 0.9% 100 ML IV SCH ×2 (02:47→16:06)
[2017-05-24 06:43] LABS: Basophils % 0.3 % (0.0-0.8); Eosinophils # 0.3 10*3/uL (0.0-0.87); Eosinophils % 2.7 % (0.00-10.9); Hematocrit 36.3 VOL% (35.7-47.0); Hemoglobin 11.2 GM/DL (12.0-16.0); Immature Granulocytes % 0.5 %; Immature Granulocytes Absolute 0.06 #; Lymphocytes # 1.3 10*3/uL (1.4-4.0); Lymphocytes % 11.1 % (21.3-54.2); Mean Corpuscular HGB Conc 30.9 GM/DL (32-36); Mean Corpuscular Hemoglobin 25 PG (27-34); Mean Corpuscular Volume 80.5 FL (87-102); Monocytes # 0.5 10*3/uL (0.11-0.8); Monocytes % 4.4 % (1.7-12.7); Neutrophils # 9.7 10*3/uL (1.4-7.4); Platelet Count 330 T/CUMM (130-400); Red Blood Count 4.51 MC/CUMM (3.8-5.5); Red Cell Distribution Width 15.9 % (9.3-17.3)
[2017-05-24 07:09] LABS: Calcium 9.2 MG/DL (8.5-10.1); Osmolality,Calculated 275.1 MOS/KG (273-304); Potassium 3.7 MMOL/L (3.5-5.1)
[2017-05-24] MEDS ORDERED: DEXTROSE 50% 25 GM/50 ML VIAL IV PRN ×2 (09:41→15:49)
[2017-05-24] MEDS ORDERED: GLUCAGON 1 MG VIAL IM PRN ×2 (09:41→15:49)
[2017-05-24] MEDS: LEVOFLOXACIN INJ 500 MG in PREMIX 1 EACH IV SCH (09:51)
[2017-05-24] MEDS: AMITRIPTYLINE 25 MG TABLET PO SCH ×3 (09:52→21:30)
[2017-05-24] MEDS: PANTOPRAZOLE 40 MG TABLET PO SCH (09:52)
[2017-05-24] MEDS ORDERED: INSULIN REGULAR 100 UNIT/ML SUBCUT SCH (11:30)
[2017-05-24] MEDS: FONDAPARINUX 2.5 MG/0.5 ML SYRINGE SUBCUT SCH (12:39)
[2017-05-24] MEDS: INSULIN LISPRO 100 UNIT/ML SUBCUT SCH ×2 (16:07→21:36)
[2017-05-24] MEDS ORDERED: TEMAZEPAM 15 MG CAPSULE PO PRN (16:07)
[2017-05-24] MEDS ORDERED: QUEtiapine 25 MG TABLET PO ONE (16:09)
[2017-05-24] MEDS: amLODIPine 5 MG TABLET PO SCH (16:20)
[2017-05-24] MEDS: DONEPEZIL 5 MG TABLET PO SCH (21:30)
[2017-05-25] MEDS: GENTAMICIN INJ 160 MG in SODIUM CHLORIDE 0.9% 100 ML IV SCH ×2 (02:19→15:48)
[2017-05-25 06:13] LABS: Basophils % 0.3 % (0.0-0.8); Eosinophils # 0.4 10*3/uL (0.0-0.87); Eosinophils % 3.3 % (0.00-10.9); Hemoglobin 11.8 GM/DL (12.0-16.0); Immature Granulocytes % 1.4 %; Immature Granulocytes Absolute 0.17 #; Lymphocytes # 1.6 10*3/uL (1.4-4.0); Lymphocytes % 13.6 % (21.3-54.2); Mean Corpuscular HGB Conc 31.9 GM/DL (32-36); Mean Corpuscular Hemoglobin 25 PG (27-34); Mean Corpuscular Volume 78.9 FL (87-102); Mean Platelet Volume 10.9 FL (9.6-12.0); Monocytes # 0.9 10*3/uL (0.11-0.8); Monocytes % 7.5 % (1.7-12.7); NRBC # 0.02 10*3/uL; Neutrophils # 8.7 10*3/uL (1.4-7.4); Neutrophils % 73.9 % (38.7-73.9); Platelet Count 352 T/CUMM (130-400); Red Blood Count 4.69 MC/CUMM (3.8-5.5); White Blood Count 11.8 T/CUMM (4-12)
[2017-05-25 06:48] LABS: Calcium 9.2 MG/DL (8.5-10.1); Osmolality,Calculated 273.1 MOS/KG (273-304); Potassium 3.7 MMOL/L (3.5-5.1)
[2017-05-25] MEDS ORDERED: MAGNESIUM SULF RIDER 2 GM in PREMIX 1 EACH IV PRN (08:32)
[2017-05-25] MEDS ORDERED: MAGNESIUM SULF RIDER 4 GM in PREMIX 1 EACH IV PRN (08:32)
[2017-05-25] MEDS: AMITRIPTYLINE 25 MG TABLET PO SCH ×3 (09:36→20:43)
[2017-05-25] MEDS: LEVOFLOXACIN INJ 500 MG in PREMIX 1 EACH IV SCH (09:36)
[2017-05-25] MEDS: amLODIPine 5 MG TABLET PO SCH (09:36)
[2017-05-25] MEDS: PANTOPRAZOLE 40 MG TABLET PO SCH (09:36)
[2017-05-25] MEDS: INSULIN LISPRO 100 UNIT/ML SUBCUT SCH ×4 (09:38→20:44)
[2017-05-25] MEDS: FONDAPARINUX 2.5 MG/0.5 ML SYRINGE SUBCUT SCH (13:52)
[2017-05-25] MEDS ORDERED: QUEtiapine 25 MG TABLET PO PRN ×2 (15:36→21:00)
[2017-05-25] MEDS: rOPINIRole 0.25 MG TABLET PO SCH (20:43)
[2017-05-25] MEDS: DONEPEZIL 5 MG TABLET PO SCH (20:43)
[2017-05-26 07:12] LABS: Basophils # 0.1 10*3/uL (0.0-0.2); Basophils % 0.6 % (0.0-0.8); Eosinophils # 0.4 10*3/uL (0.0-0.87); Eosinophils % 3.7 % (0.00-10.9); Hematocrit 38.1 VOL% (35.7-47.0); Immature Granulocytes % 0.5 %; Immature Granulocytes Absolute 0.05 #; Lymphocytes # 1.9 10*3/uL (1.4-4.0); Lymphocytes % 19.6 % (21.3-54.2); Mean Corpuscular HGB Conc 31.5 GM/DL (32-36); Mean Corpuscular Hemoglobin 25 PG (27-34); Mean Corpuscular Volume 79.2 FL (87-102); Mean Platelet Volume 11.2 FL (9.6-12.0); Monocytes % 9.9 % (1.7-12.7); Neutrophils # 6.5 10*3/uL (1.4-7.4); Neutrophils % 65.7 % (38.7-73.9); Platelet Count 375 T/CUMM (130-400); Red Blood Count 4.81 MC/CUMM (3.8-5.5); Red Cell Distribution Width 15.7 % (9.3-17.3); White Blood Count 9.9 T/CUMM (4-12)
[2017-05-26 07:40] LABS: Osmolality,Calculated 271.2 MOS/KG (273-304); Potassium 3.6 MMOL/L (3.5-5.1)
[2017-05-26] MEDS ORDERED: ATENOLOL 50 MG TABLET PO SCH (08:00)
[2017-05-26] MEDS: LEVOFLOXACIN INJ 500 MG in PREMIX 1 EACH IV SCH (09:19)
[2017-05-26] MEDS: INSULIN LISPRO 100 UNIT/ML SUBCUT SCH ×2 (09:20→12:18)
[2017-05-26] MEDS: amLODIPine 5 MG TABLET PO SCH (09:21)
[2017-05-26] MEDS: rOPINIRole 0.25 MG TABLET PO SCH (09:21)
[2017-05-26] MEDS: PANTOPRAZOLE 40 MG TABLET PO SCH (09:21)
[2017-05-26] MEDS: AMITRIPTYLINE 25 MG TABLET PO SCH ×2 (09:21→14:02)
[2017-05-26 13:53] VITALS: BP 121/68
[2017-05-26] MEDS: FONDAPARINUX 2.5 MG/0.5 ML SYRINGE SUBCUT SCH (13:56)
== END 2017-05-26 14:40 | disposition swing bed (61) | DRG 872 ==
LOC: EDUNIT# → EDBD → N.ED 09:59 → N.EDINP 12:09 → SUATTDRO 12:09 → N.EDINP 13:18 → N.5E 13:31
PROVIDERS: ATTEND Internal Medicine Infectious Disease

== ENCOUNTER 2019-03-22 11:33 | Inpatient (IN) ==
[2019-03-22 12:03] LABS: Basophils # 0.1 10*3/uL (0.0-0.2); Basophils % 0.7 % (0.0-0.8); Eosinophils # 0.8 10*3/uL (0.0-0.87); Eosinophils % 6.4 % (0.00-10.9); Hematocrit 22.5 VOL% (35.7-47.0); Immature Granulocytes % 1.3 %; Immature Granulocytes Absolute 0.16 #; Lymphocytes # 1.5 10*3/uL (1.4-4.0); Lymphocytes % 12.1 % (21.3-54.2); Mean Corpuscular Volume 75.5 FL (87-102); Monocytes % 5.5 % (1.7-12.7); NRBC # 0.02 10*3/uL; Platelet Count 313 T/CUMM (130-400); Red Blood Count 2.98 MC/CUMM (3.8-5.5); Red Cell Distribution Width 16.8 % (9.3-17.3); White Blood Count 12.2 T/CUMM (4-12)
[2019-03-22 12:05] LABS: Hemoglobin 6.3 GM/DL (12.0-16.0)
[2019-03-22 12:13] LABS: Albumin 2.8 G/DL (3.4-5.0); Bilirubin,Total 0.4 MG/DL (0.2-1.0); Calcium 8.2 MG/DL (8.5-10.1); Osmolality,Calculated 282.7 MOS/KG (273-304); Total Protein 6.5 G/DL (6.4-8.3)
[2019-03-22 12:19] LABS: % Iron Saturation 3.1 % (18-50); Ferritin 6.5 ng/ml (8-252)
[2019-03-22 12:21] LABS: Platelet Estimate Normal
[2019-03-22 12:23] LABS: Anisocytosis 1+; Polychromasia Slight
[2019-03-22] MEDS ORDERED: fentaNYL 100 MCG/2 ML VIAL IV STA (13:01)
[2019-03-22] MEDS ORDERED: ONDANSETRON 4 MG/2 ML VIAL IV STA (13:02)
[2019-03-22] MEDS ORDERED: ONDANSETRON 4 MG/2 ML VIAL ONE (13:03)
[2019-03-22] MEDS ORDERED: fentaNYL 100 MCG/2 ML VIAL ONE (13:03)
[2019-03-22] MEDS ORDERED: SODIUM CHLORIDE 0.9% 1,000 ML IV PRN (13:44)
[2019-03-22 15:22] LABS: INR 0.9; Partial Thromboplastin Time 21.8 SECS (20.8-36.0)
[2019-03-22] MEDS ORDERED: IRON DEXTRAN 25 MG in SYRINGE 1 EACH IV ONE (16:00)
[2019-03-22] MEDS: SODIUM CHLORIDE 0.9% 1,000 ML IV SCH (16:13)
[2019-03-22] MEDS: LEVOFLOXACIN INJ 750 MG in PREMIX 1 EACH IV SCH (16:16)
[2019-03-22] MEDS: rOPINIRole 0.25 MG TABLET PO SCH ×2 (16:17→21:04)
[2019-03-22] MEDS: PANTOPRAZOLE 40 MG VIAL IV SCH ×2 (16:17→21:04)
[2019-03-22 16:32] LABS: Hematocrit 22.3 VOL% (35.7-47.0)
[2019-03-22] MEDS ORDERED: IRON DEXTRAN IV ONE (17:00)
[2019-03-22] MEDS ORDERED: SODIUM CHLORIDE 0.9% IV ONE (17:00)
[2019-03-22] MEDS: oxyCODONE/ACETAMINOPHEN 5-325 MG TABLET PO PRN ×2 (17:50→21:43)
[2019-03-22 18:28] LABS: Apearance,Urine CLEAR (Clear); Bacteria,Urine Occasional /HPF (Few); Bilirubin,Urine Negative (Negative); Blood, Urine Negative (Negative); Glucose,Urine (UA) Negative (Negative); Hyaline Casts,Urine 11 /LPF (0-3); Ketones,Urine Negative (Negative); Nitrite,Urine Negative (Negative); Protein,Urine Negative; RBC,Urine 2 /HPF (0-4); Squamous Epithelial Cell,Urine Occasional /HPF (0-10); Urine Color Yellow (Yellow); Urine Specific Gravity 1.024 (1.001-1.035); Urine Urobilinogen < 2.0 EU/DL (0.2-1.0); WBC,Urine <1 /HPF (0-6)
[2019-03-22] MEDS: AMITRIPTYLINE 25 MG TABLET PO SCH (21:03)
[2019-03-22] MEDS: QUEtiapine 25 MG TABLET PO SCH (21:03)
[2019-03-22 22:27] LABS: Hematocrit 21.2 VOL% (35.7-47.0)
[2019-03-22 22:32] LABS: Hemoglobin 6.2 GM/DL (12.0-16.0)
[2019-03-23 02:32] LABS: Hematocrit 26.8 VOL% (35.7-47.0); Hemoglobin 7.9 GM/DL (12.0-16.0)
[2019-03-23] MEDS: ONDANSETRON 4 MG/2 ML VIAL IV PRN ×3 (06:12→16:39)
[2019-03-23 06:59] LABS: Hematocrit 27.2 VOL% (35.7-47.0)
[2019-03-23] MEDS ORDERED: LACTATED RINGERS 1,000 ML IV SCH (08:00)
[2019-03-23] MEDS ORDERED: LIDOCAINE 2% 5 ML VIAL ONE (09:00)
[2019-03-23] MEDS ORDERED: ETOMIDATE 20 MG/10 ML VIAL IV ONE (09:00)
[2019-03-23] MEDS: DONEPEZIL 5 MG TABLET PO SCH (11:09)
[2019-03-23] MEDS: PANTOPRAZOLE 40 MG VIAL IV SCH ×2 (11:09→20:59)
[2019-03-23] MEDS: atenoloL 50 MG TABLET PO SCH (11:10)
[2019-03-23] MEDS: ALFUZOSIN 10 MG TABLET PO SCH (11:10)
[2019-03-23] MEDS: VENLAFAXINE XR 75 MG CAPSULE PO SCH (11:10)
[2019-03-23] MEDS: rOPINIRole 0.25 MG TABLET PO SCH ×3 (11:10→20:38)
[2019-03-23] MEDS: SODIUM CHLORIDE 0.9% 1,000 ML IV SCH (11:11)
[2019-03-23] MEDS: oxyCODONE/ACETAMINOPHEN 5-325 MG TABLET PO PRN ×3 (11:21→20:38)
[2019-03-23] MEDS ORDERED: amLODIPine 5 MG TABLET PO ONE (15:00)
[2019-03-23] MEDS ORDERED: ACETAMINOPHEN 325 MG TABLET PO PRN (16:20)
[2019-03-23] MEDS: QUEtiapine 25 MG TABLET PO SCH (20:38)
[2019-03-23] MEDS: AMITRIPTYLINE 25 MG TABLET PO SCH (20:39)
[2019-03-23] MEDS ORDERED: traZODone 50 MG TABLET PO SCH (22:04)
[2019-03-23] MEDS ORDERED: PROMETHAZINE 25 MG TABLET PO PRN (22:05)
[2019-03-23] MEDS ORDERED: PROMETHAZINE 25 MG/1 ML VIAL IM ONE (22:05)
[2019-03-24] MEDS: oxyCODONE/ACETAMINOPHEN 5-325 MG TABLET PO PRN ×4 (00:41→14:53)
[2019-03-24 05:10] LABS: Basophils # 0.1 10*3/uL (0.0-0.2); Basophils % 0.6 % (0.0-0.8); Eosinophils # 0.4 10*3/uL (0.0-0.87); Eosinophils % 3.6 % (0.00-10.9); Hemoglobin 7.4 GM/DL (12.0-16.0); Immature Granulocytes % 0.8 %; Immature Granulocytes Absolute 0.09 #; Lymphocytes # 1.4 10*3/uL (1.4-4.0); Lymphocytes % 12.1 % (21.3-54.2); Mean Corpuscular HGB Conc 29.6 GM/DL (32-36); Mean Corpuscular Volume 76.9 FL (87-102); Mean Platelet Volume 11.4 FL (9.6-12.0); NRBC # 0.02 10*3/uL; Neutrophils % 74.9 % (38.7-73.9); Platelet Count 283 T/CUMM (130-400); Red Blood Count 3.25 MC/CUMM (3.8-5.5); Red Cell Distribution Width 17.7 % (9.3-17.3); White Blood Count 11.7 T/CUMM (4-12)
[2019-03-24 05:43] LABS: Calcium 8.5 MG/DL (8.5-10.1); Osmolality,Calculated 280.5 MOS/KG (273-304)
[2019-03-24] MEDS: atenoloL 50 MG TABLET PO SCH (08:57)
[2019-03-24] MEDS: VENLAFAXINE XR 75 MG CAPSULE PO SCH (08:57)
[2019-03-24] MEDS: ALFUZOSIN 10 MG TABLET PO SCH (08:58)
[2019-03-24] MEDS: DONEPEZIL 5 MG TABLET PO SCH (08:58)
[2019-03-24] MEDS: LEVOFLOXACIN INJ 750 MG in PREMIX 1 EACH IV SCH (08:58)
[2019-03-24] MEDS: rOPINIRole 0.25 MG TABLET PO SCH ×3 (08:58→20:21)
[2019-03-24] MEDS: PANTOPRAZOLE 40 MG VIAL IV SCH ×2 (08:58→21:37)
[2019-03-24] MEDS ORDERED: SODIUM CHLORIDE 0.9% 1,000 ML IV PRN ×2 (10:00→10:54)
[2019-03-24] MEDS ORDERED: FUROSEMIDE 20 MG/2 ML VIAL IV ONE ×2 (10:19→10:54)
[2019-03-24] MEDS ORDERED: ALBUTEROL 1.25 MG/3 ML NEB RESP TX PRN (10:55)
[2019-03-24] MEDS: GABAPENTIN 400 MG CAPSULE PO SCH ×3 (12:32→20:22)
[2019-03-24] MEDS: BISACODYL 5 MG TABLET PO SCH (14:53)
[2019-03-24] MEDS: ALBUTEROL 1.25 MG/3 ML NEB RESP TX SCH ×2 (15:15→17:57)
[2019-03-24] MEDS ORDERED: FUROSEMIDE 20 MG/2 ML VIAL ONE (17:32)
[2019-03-24 18:09] LABS: Hematocrit 29.7 VOL% (35.7-47.0); Hemoglobin 8.6 GM/DL (12.0-16.0)
[2019-03-24] MEDS: QUEtiapine 25 MG TABLET PO SCH (20:22)
[2019-03-24] MEDS: AMITRIPTYLINE 25 MG TABLET PO SCH (20:22)
[2019-03-24] MEDS ORDERED: traZODone 50 MG TABLET PO SCH (21:00)
[2019-03-25] MEDS: oxyCODONE/ACETAMINOPHEN 5-325 MG TABLET PO PRN ×2 (00:27→08:53)
[2019-03-25 06:11] LABS: Basophils # 0.1 10*3/uL (0.0-0.2); Basophils % 0.7 % (0.0-0.8); Eosinophils # 0.7 10*3/uL (0.0-0.87); Eosinophils % 6.2 % (0.00-10.9); Hematocrit 26.9 VOL% (35.7-47.0); Hemoglobin 8.2 GM/DL (12.0-16.0); Immature Granulocytes % 0.9 %; Lymphocytes # 1.6 10*3/uL (1.4-4.0); Lymphocytes % 14.8 % (21.3-54.2); Mean Corpuscular HGB Conc 30.5 GM/DL (32-36); Mean Corpuscular Volume 78.4 FL (87-102); Mean Platelet Volume 10.5 FL (9.6-12.0); Monocytes % 9.7 % (1.7-12.7); Neutrophils % 67.7 % (38.7-73.9); Platelet Count 268 T/CUMM (130-400); Red Blood Count 3.43 MC/CUMM (3.8-5.5); Red Cell Distribution Width 18.6 % (9.3-17.3); White Blood Count 10.7 T/CUMM (4-12)
[2019-03-25 06:30] LABS: Calcium 8.5 MG/DL (8.5-10.1); Osmolality,Calculated 275.8 MOS/KG (273-304)
[2019-03-25] MEDS: ALBUTEROL 1.25 MG/3 ML NEB RESP TX SCH (07:15)
[2019-03-25 07:44] VITALS: BP 152/65
[2019-03-25] MEDS: VENLAFAXINE XR 75 MG CAPSULE PO SCH (08:53)
[2019-03-25] MEDS: PANTOPRAZOLE 40 MG VIAL IV SCH (08:53)
[2019-03-25] MEDS: ALFUZOSIN 10 MG TABLET PO SCH (08:53)
[2019-03-25] MEDS: DONEPEZIL 5 MG TABLET PO SCH (08:54)
[2019-03-25] MEDS: GABAPENTIN 400 MG CAPSULE PO SCH (08:54)
[2019-03-25] MEDS: rOPINIRole 0.25 MG TABLET PO SCH (08:54)
[2019-03-25] MEDS: atenoloL 50 MG TABLET PO SCH (08:54)
[2019-03-25] MEDS ORDERED: LEVOFLOXACIN INJ 750 MG in PREMIX 1 EACH IV SCH (09:00)
[2019-03-25] MEDS: BISACODYL 5 MG TABLET PO SCH (10:30)
== END 2019-03-25 12:25 | disposition home or self-care (01) | DRG 811 ==
LOC: EDBD → EDUNIT# → N.EDINP 11:33 → N.ED 11:33 → N.2E 15:18
PROVIDERS: ADMIT Internal Medicine; ATTEND Internal Medicine

== ENCOUNTER 2020-06-25 12:53 | Inpatient (IN) ==
[2020-06-25 13:18] LABS: Basophils % 0.4 % (0.0-0.8); Eosinophils # 0.5 10*3/uL (0.0-0.87); Eosinophils % 4.8 % (0.00-10.9); Hematocrit 35.6 VOL% (35.7-47.0); Hemoglobin 10.9 GM/DL (12.0-16.0); Immature Granulocytes % 1.6 %; Immature Granulocytes Absolute 0.16 #; Lymphocytes # 0.8 10*3/uL (1.4-4.0); Lymphocytes % 7.8 % (21.3-54.2); Mean Corpuscular HGB Conc 30.6 GM/DL (32-36); Mean Corpuscular Volume 90.8 FL (87-102); Mean Platelet Volume 10.8 FL (9.6-12.0); Monocytes % 4.2 % (1.7-12.7); Neutrophils % 81.2 % (38.7-73.9); Platelet Count 198 T/CUMM (130-400); Red Blood Count 3.92 MC/CUMM (3.8-5.5); Red Cell Distribution Width 13.6 % (9.3-17.3); White Blood Count 10.1 T/CUMM (4-12)
[2020-06-25 13:37] LABS: Albumin 2.7 G/DL (3.4-5.0); Bilirubin,Total 0.5 MG/DL (0.2-1.0); Calcium 8.5 MG/DL (8.5-10.1); Osmolality,Calculated 285.5 MOS/KG (273-304); Potassium 3.9 MMOL/L (3.5-5.1); Total Protein 6.5 G/DL (6.4-8.2)
[2020-06-25 13:38] LABS: Bilirubin,Urine Negative (Negative); Blood, Urine Small mg/dL (Negative); Glucose,Urine (UA) Negative (Negative); Ketones,Urine Negative (Negative); Mucus,Urine Occasional /LPF (Occasional); Nitrite,Urine Negative (Negative); Protein,Urine 30 MG/DL; RBC,Urine 1 /HPF (0-4); Squamous Epithelial Cell,Urine Occasional /HPF (0-10); Urine Appearance CLEAR (Clear); Urine Color Amber (Yellow); Urine Specific Gravity 1.019 (1.001-1.035)
[2020-06-25] MEDS ORDERED: DEXTROSE 50% 25 GM/50 ML VIAL IV PRN (15:16)
[2020-06-25] MEDS ORDERED: GLUCAGON 1 MG VIAL IM PRN (15:16)
[2020-06-25] MEDS ORDERED: ACETAMINOPHEN 325 MG TABLET PO PRN (15:18)
[2020-06-25] MEDS ORDERED: ONDANSETRON 4 MG/2 ML VIAL IV PRN (15:18)
[2020-06-25] MEDS ORDERED: ONDANSETRON 4 MG/2 ML VIAL IV STA (15:43)
[2020-06-25] MEDS ORDERED: KETOROLAC 30 MG/1 ML VIAL IV STA (15:44)
[2020-06-25] MEDS: INSULIN LISPRO 100 UNIT/ML SUBCUT SCH ×2 (16:50→21:59)
[2020-06-25] MEDS: oxyCODONE/ACETAMINOPHEN 5-325 MG TABLET PO PRN ×2 (16:54→23:20)
[2020-06-25] MEDS ORDERED: FUROSEMIDE 40 MG/4 ML VIAL IV ONE (17:00)
[2020-06-25 17:31] LABS: Rheumatoid Factor < 15 IU/ML (<15)
[2020-06-25 18:01] LABS: Thyroid Stimulating Hormone 0.683 uIU/ml (0.358-3.74)
[2020-06-25 18:16] LABS: Cyclic Citrull Peptide Interp Negative
[2020-06-25] MEDS: MELOXICAM 7.5 MG TABLET PO SCH (19:16)
[2020-06-25] MEDS: ENOXAPARIN 40 MG/0.4 ML SYRINGE SUBCUT SCH (21:58)
[2020-06-25] MEDS: QUEtiapine 25 MG TABLET PO SCH (23:19)
[2020-06-25] MEDS: traZODone 50 MG TABLET PO SCH (23:19)
[2020-06-26 05:22] LABS: Basophils % 0.4 % (0.0-0.8); Eosinophils # 0.7 10*3/uL (0.0-0.87); Eosinophils % 7.5 % (0.00-10.9); Hematocrit 31.2 VOL% (35.7-47.0); Hemoglobin 9.6 GM/DL (12.0-16.0); Immature Granulocytes % 2.2 %; Immature Granulocytes Absolute 0.22 #; Lymphocytes # 1.2 10*3/uL (1.4-4.0); Lymphocytes % 11.7 % (21.3-54.2); Mean Corpuscular HGB Conc 30.8 GM/DL (32-36); Mean Platelet Volume 11.5 FL (9.6-12.0); Monocytes % 5.1 % (1.7-12.7); Neutrophils % 73.1 % (38.7-73.9); Platelet Count 229 T/CUMM (130-400); Red Blood Count 3.39 MC/CUMM (3.8-5.5); Red Cell Distribution Width 13.5 % (9.3-17.3); White Blood Count 9.9 T/CUMM (4-12)
[2020-06-26] MEDS: oxyCODONE/ACETAMINOPHEN 5-325 MG TABLET PO PRN ×3 (05:23→20:04)
[2020-06-26 05:38] LABS: Calcium 8.6 MG/DL (8.5-10.1); Osmolality,Calculated 282.5 MOS/KG (273-304); Potassium 3.8 MMOL/L (3.5-5.1)
[2020-06-26 05:43] LABS: Band Neutrophils 2 % (0-10); Eosinophils 10 % (0-10); Hypochromasia 1+; Lymphocytes 17 % (20-55); Microcytosis 1+; Segmented Neutrophils 70 % (50-85); Total Cells Counted 100
[2020-06-26 05:44] LABS: Atypical Lymphocytes Few; Platelet Estimate Normal
[2020-06-26] MEDS: MELOXICAM 7.5 MG TABLET PO SCH (09:48)
[2020-06-26] MEDS: INSULIN LISPRO 100 UNIT/ML SUBCUT SCH ×4 (09:48→20:21)
[2020-06-26] MEDS ORDERED: predniSONE 20 MG TABLET PO ONE (10:34)
[2020-06-26] MEDS ORDERED: MEPERIDINE 25 MG/1 ML VIAL IV ONE (10:38)
[2020-06-26] MEDS: FUROSEMIDE 20 MG TABLET PO SCH (11:20)
[2020-06-26] MEDS: ZINC OXIDE PASTE 113 GM TUBE TOP SCH ×2 (13:40→20:04)
[2020-06-26] MEDS ORDERED: TUBERCULIN SKIN TEST 0.1 ML SYRINGE INTRADERM ONE (13:42)
[2020-06-26] MEDS: QUEtiapine 25 MG TABLET PO SCH (20:02)
[2020-06-26] MEDS: ENOXAPARIN 40 MG/0.4 ML SYRINGE SUBCUT SCH (20:04)
[2020-06-26] MEDS: traZODone 50 MG TABLET PO SCH (20:04)
[2020-06-27] MEDS: oxyCODONE/ACETAMINOPHEN 5-325 MG TABLET PO PRN ×4 (04:33→22:50)
[2020-06-27 06:40] LABS: Osmolality,Calculated 280.8 MOS/KG (273-304); Potassium 3.7 MMOL/L (3.5-5.1)
[2020-06-27 06:43] LABS: Basophils % 0.3 % (0.0-0.8); Eosinophils # 0.1 10*3/uL (0.0-0.87); Eosinophils % 0.6 % (0.00-10.9); Hematocrit 31.4 VOL% (35.7-47.0); Hemoglobin 10.2 GM/DL (12.0-16.0); Immature Granulocytes % 2.6 %; Immature Granulocytes Absolute 0.33 #; Lymphocytes # 1.5 10*3/uL (1.4-4.0); Lymphocytes % 11.6 % (21.3-54.2); Mean Corpuscular HGB Conc 32.5 GM/DL (32-36); Mean Corpuscular Volume 87.7 FL (87-102); Mean Platelet Volume 11.3 FL (9.6-12.0); Monocytes % 4.9 % (1.7-12.7); Platelet Count 255 T/CUMM (130-400); Red Blood Count 3.58 MC/CUMM (3.8-5.5); Red Cell Distribution Width 12.9 % (9.3-17.3); White Blood Count 12.5 T/CUMM (4-12)
[2020-06-27] MEDS: INSULIN LISPRO 100 UNIT/ML SUBCUT SCH ×4 (08:26→20:50)
[2020-06-27] MEDS: DONEPEZIL 5 MG TABLET PO SCH (08:42)
[2020-06-27] MEDS: MELOXICAM 7.5 MG TABLET PO SCH (08:42)
[2020-06-27] MEDS: GABAPENTIN 400 MG CAPSULE PO SCH ×2 (08:42→20:50)
[2020-06-27] MEDS: atenoloL 50 MG TABLET PO SCH (08:42)
[2020-06-27] MEDS: predniSONE 20 MG TABLET PO SCH (08:43)
[2020-06-27] MEDS: FUROSEMIDE 20 MG TABLET PO SCH (08:43)
[2020-06-27] MEDS: ZINC OXIDE PASTE 113 GM TUBE TOP SCH ×2 (08:46→20:51)
[2020-06-27] MEDS ORDERED: rOPINIRole 0.25 MG TABLET PO SCH (09:00)
[2020-06-27] MEDS ORDERED: MYLANTA/LIDO VISC/NYST 180 ML BOTTLE SWISH/SPIT PRN (16:30)
[2020-06-27] MEDS: QUEtiapine 25 MG TABLET PO SCH (20:50)
[2020-06-27] MEDS: ENOXAPARIN 40 MG/0.4 ML SYRINGE SUBCUT SCH (20:51)
[2020-06-27] MEDS: AMITRIPTYLINE 25 MG TABLET PO SCH (20:51)
[2020-06-27] MEDS: traZODone 50 MG TABLET PO SCH (20:51)
[2020-06-28] MEDS: oxyCODONE/ACETAMINOPHEN 5-325 MG TABLET PO PRN ×3 (05:35→23:43)
[2020-06-28 06:27] LABS: Basophils # 0.1 10*3/uL (0.0-0.2); Basophils % 0.7 % (0.0-0.8); Eosinophils # 0.3 10*3/uL (0.0-0.87); Eosinophils % 2.5 % (0.00-10.9); Hemoglobin 10.6 GM/DL (12.0-16.0); Immature Granulocytes % 4.2 %; Immature Granulocytes Absolute 0.51 #; Lymphocytes # 2.5 10*3/uL (1.4-4.0); Lymphocytes % 20.8 % (21.3-54.2); Mean Corpuscular HGB Conc 31.2 GM/DL (32-36); Mean Corpuscular Volume 89.5 FL (87-102); Mean Platelet Volume 10.3 FL (9.6-12.0); Monocytes % 8.1 % (1.7-12.7); Neutrophils % 63.7 % (38.7-73.9); Platelet Count 270 T/CUMM (130-400); White Blood Count 12.2 T/CUMM (4-12)
[2020-06-28 06:48] LABS: Calcium 8.8 MG/DL (8.5-10.1); Osmolality,Calculated 283.7 MOS/KG (273-304); Potassium 3.1 MMOL/L (3.5-5.1)
[2020-06-28 06:54] LABS: Folate 10.59 NG/ML (5.38-24.0)
[2020-06-28 08:15] LABS: Anisocytosis 1+; Band Neutrophils 3 % (0-10); Eosinophils 3 % (0-10); Lymphocytes 24 % (20-55); Platelet Estimate Normal; Segmented Neutrophils 63 % (50-85); Smudge Cells Few; Total Cells Counted 100
[2020-06-28 08:16] LABS: Macrocytosis Slight
[2020-06-28] MEDS: DONEPEZIL 5 MG TABLET PO SCH (08:38)
[2020-06-28] MEDS: GABAPENTIN 400 MG CAPSULE PO SCH ×2 (08:38→21:18)
[2020-06-28] MEDS: MELOXICAM 7.5 MG TABLET PO SCH (08:38)
[2020-06-28] MEDS: atenoloL 50 MG TABLET PO SCH (08:39)
[2020-06-28] MEDS: FUROSEMIDE 20 MG TABLET PO SCH (08:39)
[2020-06-28] MEDS: predniSONE 20 MG TABLET PO SCH (08:39)
[2020-06-28] MEDS: INSULIN LISPRO 100 UNIT/ML SUBCUT SCH ×4 (09:42→21:19)
[2020-06-28] MEDS ORDERED: MEPERIDINE 25 MG/1 ML VIAL IV PRN (10:12)
[2020-06-28] MEDS: POTASSIUM CHLORIDE 20 MEQ TABLET PO PRN ×4 (10:40→17:52)
[2020-06-28] MEDS: ZINC OXIDE PASTE 113 GM TUBE TOP SCH ×2 (10:42→21:19)
[2020-06-28] MEDS: ENOXAPARIN 40 MG/0.4 ML SYRINGE SUBCUT SCH (21:17)
[2020-06-28] MEDS: QUEtiapine 25 MG TABLET PO SCH (21:18)
[2020-06-28] MEDS: traZODone 50 MG TABLET PO SCH (21:18)
[2020-06-28] MEDS: AMITRIPTYLINE 25 MG TABLET PO SCH (21:18)
[2020-06-29] MEDS: oxyCODONE/ACETAMINOPHEN 5-325 MG TABLET PO PRN ×3 (06:30→18:33)
[2020-06-29 06:44] LABS: Osmolality,Calculated 281.5 MOS/KG (273-304); Potassium 3.4 MMOL/L (3.5-5.1)
[2020-06-29] MEDS ORDERED: MAGNESIUM SULF RIDER 4 GM/100 ML PREMIX IV PRN (08:09)
[2020-06-29] MEDS ORDERED: MAGNESIUM SULF RIDER 2 GM/50 ML PREMIX IV PRN (08:09)
[2020-06-29] MEDS: GABAPENTIN 400 MG CAPSULE PO SCH ×2 (08:50→20:21)
[2020-06-29] MEDS: DONEPEZIL 5 MG TABLET PO SCH (08:50)
[2020-06-29] MEDS: POTASSIUM CHLORIDE 20 MEQ TABLET PO PRN ×4 (08:50→18:34)
[2020-06-29] MEDS: predniSONE 20 MG TABLET PO SCH (08:51)
[2020-06-29] MEDS: MELOXICAM 7.5 MG TABLET PO SCH (08:51)
[2020-06-29] MEDS: atenoloL 50 MG TABLET PO SCH (08:51)
[2020-06-29] MEDS: FUROSEMIDE 20 MG TABLET PO SCH (08:51)
[2020-06-29] MEDS: INSULIN LISPRO 100 UNIT/ML SUBCUT SCH ×4 (09:03→23:01)
[2020-06-29] MEDS: ZINC OXIDE PASTE 113 GM TUBE TOP SCH ×2 (09:03→20:19)
[2020-06-29] MEDS: ACETAMINOPHEN 500 MG TABLET PO SCH ×2 (15:42→23:17)
[2020-06-29] MEDS: AMITRIPTYLINE 25 MG TABLET PO SCH (20:19)
[2020-06-29] MEDS: traZODone 50 MG TABLET PO SCH (20:19)
[2020-06-29] MEDS: QUEtiapine 25 MG TABLET PO SCH (20:20)
[2020-06-29] MEDS: ENOXAPARIN 40 MG/0.4 ML SYRINGE SUBCUT SCH (20:20)
[2020-06-30] MEDS: oxyCODONE/ACETAMINOPHEN 5-325 MG TABLET PO PRN ×3 (00:10→14:09)
[2020-06-30 05:00] LABS: Basophils # 0.1 10*3/uL (0.0-0.2); Basophils % 0.5 % (0.0-0.8); Eosinophils # 0.3 10*3/uL (0.0-0.87); Eosinophils % 1.9 % (0.00-10.9); Hematocrit 35.4 VOL% (35.7-47.0); Hemoglobin 11.4 GM/DL (12.0-16.0); Immature Granulocytes % 3.7 %; Immature Granulocytes Absolute 0.61 #; Lymphocytes # 3.3 10*3/uL (1.4-4.0); Lymphocytes % 19.5 % (21.3-54.2); Mean Corpuscular HGB Conc 32.2 GM/DL (32-36); Mean Corpuscular Volume 87.4 FL (87-102); Mean Platelet Volume 10.5 FL (9.6-12.0); Monocytes % 6.7 % (1.7-12.7); Neutrophils % 67.7 % (38.7-73.9); Platelet Count 297 T/CUMM (130-400); Red Blood Count 4.05 MC/CUMM (3.8-5.5); Red Cell Distribution Width 12.8 % (9.3-17.3); White Blood Count 16.6 T/CUMM (4-12)
[2020-06-30 05:16] LABS: Calcium 9.1 MG/DL (8.5-10.1); Osmolality,Calculated 280.7 MOS/KG (273-304); Potassium 3.5 MMOL/L (3.5-5.1)
[2020-06-30 05:23] LABS: Band Neutrophils 3 % (0-10); Eosinophils 3 % (0-10); Hypochromasia 1+; Lymphocytes 16 % (20-55); Microcytosis 1+; Platelet Estimate Adequate; Segmented Neutrophils 69 % (50-85); Total Cells Counted 100
[2020-06-30] MEDS: ACETAMINOPHEN 500 MG TABLET PO SCH ×2 (06:39→14:49)
[2020-06-30] MEDS: INSULIN LISPRO 100 UNIT/ML SUBCUT SCH ×2 (09:53→11:22)
[2020-06-30] MEDS: FUROSEMIDE 20 MG TABLET PO SCH (09:54)
[2020-06-30] MEDS: DONEPEZIL 5 MG TABLET PO SCH (09:54)
[2020-06-30] MEDS: GABAPENTIN 400 MG CAPSULE PO SCH (09:54)
[2020-06-30] MEDS: MELOXICAM 7.5 MG TABLET PO SCH (09:54)
[2020-06-30] MEDS: predniSONE 20 MG TABLET PO SCH (09:54)
[2020-06-30] MEDS: atenoloL 50 MG TABLET PO SCH (09:54)
[2020-06-30] MEDS: ZINC OXIDE PASTE 113 GM TUBE TOP SCH (09:55)
[2020-06-30 16:36] VITALS: BP 185/74
== END 2020-06-30 17:15 | disposition swing bed (61) | DRG 554 ==
LOC: EDUNIT# → EDBD → N.EDINP 12:53 → N.ED 12:53 → N.3E 20:17 → SUATTDRO 06-27 13:00
PROVIDERS: ADMIT Internal Medicine; ATTEND Internal Medicine